=== PATIENT | female | born 1975 | race Caucasian/White ===

== ENCOUNTER 2016-10-17 17:08 | Inpatient (IN) ==
[2016-10-17] MEDS ORDERED: traZODone 50 MG TABLET PO PRN (17:17)
[2016-10-17] MEDS ORDERED: MOM Conc 10 ML UD.LIQ PO PRN (17:17)
[2016-10-17] MEDS ORDERED: hydrOXYzine pamoate 25 MG CAPSULE PO PRN (17:17)
[2016-10-17] MEDS ORDERED: Haloperidol Lactate 5 MG/ML VIAL IM PRN (17:17)
[2016-10-17] MEDS ORDERED: Mag Hydrox/Al Hydrox/Simeth 30 ML UDC PO PRN (17:17)
[2016-10-17] MEDS ORDERED: *HR* LORazepam 2 MG/ML VIAL IM PRN (17:17)
[2016-10-17] MEDS ORDERED: Ibuprofen 400 MG TABLET PO PRN (17:17)
[2016-10-17] MEDS: Nicotine 21 MG PATCH.TD24 TD SCH (21:39)
[2016-10-18] MEDS: Nicotine 21 MG PATCH.TD24 TD SCH (08:11)
[2016-10-18] MEDS: *HR* LORazepam 1 MG TABLET PO PRN ×3 (10:40→20:47)
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
[2016-10-18] MEDS: FLUoxetine 20 MG CAPSULE PO SCH (14:12)
[2016-10-19] MEDS: *HR* LORazepam 1 MG TABLET PO PRN ×3 (03:46→13:39)
[2016-10-19] MEDS: FLUoxetine 20 MG CAPSULE PO SCH (08:13)
[2016-10-19] MEDS: Nicotine 21 MG PATCH.TD24 TD SCH (08:13)
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
[2016-10-20] MEDS: *HR* LORazepam 1 MG TABLET PO PRN ×2 (07:05→13:45)
[2016-10-20] MEDS: Nicotine 21 MG PATCH.TD24 TD SCH (08:42)
[2016-10-20] MEDS: FLUoxetine 20 MG CAPSULE PO SCH (08:42)
[2016-10-20 09:09] VITALS: BP 117/72
--- NOTE | 2016-10-20 13:34 | Discharge Summary ---
Date of Encounter: 10/20/16 Time of Encounter: 13:00 Diagnosis - Discharge Diagnosis (1) Depression, major, recurrent, moderate Status: Acute (2) Tetrahydrocannabinol (THC) use disorder, mild, abuse Status: Acute Medications - Discharge Medications Prescriptions: FLUoxetine HCl [Prozac] 20 mg PO DAILY #30 capsule HydrOXYzine Pamoate 25 mg PO TID PRN #60 capsule PRN Reason: Anxiety Ibuprofen [Motrin] 800 mg PO TID PRN 10/18/16 [History] FLUoxetine HCl [Prozac] 20 mg PO DAILY #30 capsule 10/20/16 [Rx] HydrOXYzine Pamoate 25 mg PO TID PRN #60 capsule 10/20/16 [Rx] Allergies amitriptyline [From Elavil] Allergy (Verified 06/05/15 15:37) Seizure Provider Date of admission: 10/17/16 17:08 Primary care physician: PCP NO Discharging clinician: Niall Yan Assessment and Plan - Patient/Caregiver Discharge Instructions Activity: resume usual activities as tolerated Diet: regular diet - Follow up Plan Follow up with: Elizabeth Munoz [facility] [place] [Outside] (To establish in services, you may walk -in any Sunday through Sunday from 8:00am 12:00pm or 1:00pm 4:00pm. Your case will be opened, and you will be scheduled to see a counselor and psychiatric prescriber. Please bring your insurance card, photo ID and medication list. ) Functional capacity at discharge: independent ambulation Overall status at discharge: Stable Disposition: Home, Self-Care Hospital Course Hospital course: Ms. Ren is a 41 year old female admitted as a transfer from [facility] for evaluation of suicidal ideation and overdose on medication. For details of admission please see H&P On the units patient was evaluated and started on fluoxetine 20 mg daily and she responded positively. She reported improved sleep and this anxiety, she participated in group activities and denied any suicidal ideation. Discharge plans on follow-up were completed by the clinical social worker including counseling and medication management. Prior to discharge patient was medically stable and nonsuicidal and future oriented. - Time Spent with Patient Total time spent providing and/or coordinating discharge services: Greater than 30 minutes Quality - Multiple Antipsychotics Patient discharged on 2 or more antipsychotic medications: No Procedures - Procedures Procedures: Medication Management, Crisis Stabilization, Supportive Therapy, Group Therapy, Psychoeducational Therapy Mental Status Exam - Mental Status Exam Patient orientation: Yes Person, Yes Time, Yes Place Level of alertness: Alert Patient appearance: Appropriate, Well Groomed Behavior: calm, cooperative Psychomotor activity: Normal Eye contact: Maintains Eye Contact Mood description: Euthymic/stable Affect description: congruent with mood, full range Speech pattern: Normal rate, Normal rhythm, Normal tone Speech Volume: Normal Thought process: Linear, Goal Oriented Thought Content: No Suicidal ideation, No Homicidal ideation, No Overt delusions Perceptual Disturbances: No Auditory hallucinations, No Visual hallucinations Judgment: Limited Insight: Partial
== END 2016-10-20 16:16 | disposition home or self-care (01) | DRG 751 ==
LOC: 1ANU 17:08
PROVIDERS: ADMIT Psychiatry & Neurology Psychiatry; ATTEND Psychiatry & Neurology Psychiatry